=== PATIENT | female | born 1985 | race Caucasian/White ===

== ENCOUNTER 2016-08-31 10:21 | Emergency (ER) | payer OTHER ==
--- NOTE | ~2016-08-31 | CR181 ---
[facility] A Service of [facility] RADIOLOGY TEXT RESULTS PATIENT: TARA WING LOCATION: [facility]FT[facility] : 85 UNIT #: [id number] AGE: [address]: KENDRA VALLEJO SEX: F ORDER DR: [id number] [facility] [address] [place], [place] [address] [id number] E MR#: [id number] Acc #: [id number] NAME: TARA WING : 1985 SEX: F STUDY DATE/TIME: 08/31/2016 11:15 UNIT: [facility] ROOM: STUDY DESCRIPTION: CR Lumbar Spine 2 or 3 Views Attending Physician: Kendra Vallejo A.P.R.N. Ordering Physician: Kendra Vallejo A.P.R.N. Primary Care Physician: No Primary Care Physician MEDICAL IMAGING REPORT This report is preliminary unless electronic signature is present EXAM Lumbar spine series. HISTORY Low back pain after lifting heavy boxes yesterday. TECHNIQUE 3 views of the lumbar spine were obtained. FINDINGS At L5-S1, there is moderate disc space narrowing anterior and posterior osteophyte formation and a grade 1 retrolisthesis. There is mild disc space narrowing at L4-5 as well. There is no evidence of fracture. Posterior facets are intact and no pars defects are noted. No acute bony abnormalities are seen. IMPRESSION Moderately severe degenerative disc disease L5-S1 with mild degenerative disc disease L4-5. No acute bony abnormalities are seen. Dictated by... Jeremias Townsend M.D. THIS IS AN ELECTRONICALLY VERIFIED REPORT Jeremias Townsend M.D. at 09/01/2016 11:37 AM NAVEED/evette TD: 08/31/2016 22:51 JOB #: [id number] MEDICAL IMAGING REPORT Page 1 of 1 COPY
== END 2016-08-31 13:14 | disposition home or self-care (01) ==
LOC: CED 10:21 → CFTX 10:21
DX: M54.32 Sciatica, left side (principal)
CPT/HCPCS: 72100; 84703; 96372; 99283; J2270